=== PATIENT | female | born 1980 | race Caucasian/White ===

== ENCOUNTER → 2016-02-23 | Outpatient (REF) | payer OTHER | LOC: M SFHCLERA 17:46 | PROVIDERS: ATTEND Nurse Practitioner Family | DX: N93.9 Abnormal uterine and vaginal bleeding, unspecified (principal) ==

== ENCOUNTER → 2016-04-26 | Outpatient (CLI) | payer OTHER ==
--- NOTE | 2016-04-26 09:59 | REP ---
Transvaginal pelvic sonography: History: Ovarian dysfunction, follicle study. Findings: Uterine dimensions today are 7.3 x 2.8 x 4.5 cm. There are Nabothian cysts in the cervix. Previous uterine section scar is seen at the lower uterine segment. Endometrial echo is 0.6 cm thick. No free fluid visible in the cul-de-sac. The overall dimensions of the right ovary are 3.1 x 3.0 x 1.7 cm. There are two follicles greater than a centimeter in the right ovary measured as follows: 1.1 x 0.8 and 1.4 x 1.0 cm. In addition, the right ovary contains five follicles ranging in size from 0.5 to 0.8 cm. The left ovary measures 3.5 x 2.1 x 2.2 cm. There is a follicle in the left ovary measuring 1.8 x 1.5 cm. The left ovary contains five follicles ranging in size from 0.5 to 0.9 cm. Impression: Follicle study as above. Signed by Galileo Rich MD 04/26/2016 01:08 P
[2016-04-26 10:05] LABS: LUTEINIZING HORMONE 7.1 mIU/mL; PROGESTERONE 0.9 NG/ML
[2016-04-26 10:06] LABS: ESTRADIOL 77.4 PG/ML
== END ==
LOC: M LAB 07:49 → M RAD 07:49
PROVIDERS: ATTEND Obstetrics & Gynecology Reproductive Endocrinology
DX: N97.9 Female infertility, unspecified (principal)

== ENCOUNTER → 2016-04-29 | Outpatient (CLI) | payer OTHER ==
--- NOTE | 2016-04-29 08:20 | REP ---
Transvaginal pelvic sonography: History: Infertility. Findings: Uterine dimensions are 8.9 x 3.6 x 4.9 cm. Endometrial echo is 1.3 cm thick. There is some endocervical fluid noted today at the time of scanning. No focal uterine mass is seen. The overall dimensions of the right ovary are 2.8 x 1.9 x 2.1 cm. There are three follicles over a centimeter in the right ovary today measured as follows: 1.4 x 1.0, 1.0 x 1.0, 1.0 x 0.7 cm respectively. In addition, the right ovary contains eight follicles ranging in size from 0.2-0.8 cm. The overall dimensions of the left ovary today are 4.1 x 2.6 x 3.1 cm. There is a 2.4 x 1.4 cm follicle in the left ovary and there are five follicles in the left ovary ranging in size from 0.3-0.8 cm. Impression: Follicle study as above. No significant abnormality. Signed by Galileo Rich MD 04/29/2016 08:12 A
[2016-04-29 09:55] LABS: ESTRADIOL 350.1 PG/ML; LUTEINIZING HORMONE 7.9 mIU/mL; PROGESTERONE 0.9 NG/ML
== END ==
LOC: M RAD 07:25 → M LAB 07:25
PROVIDERS: ATTEND Obstetrics & Gynecology Reproductive Endocrinology
DX: E28.2 Polycystic ovarian syndrome (principal)

== ENCOUNTER → 2016-05-06 | Outpatient (CLI) | payer OTHER ==
[2016-05-06 08:47] LABS: ESTRADIOL 183.1 PG/ML; PROGESTERONE 19.5 NG/ML
== END ==
LOC: M LAB 07:43
PROVIDERS: ATTEND Obstetrics & Gynecology Reproductive Endocrinology
DX: Z31.49 Encounter for other procreative investigation and testing (principal)

== ENCOUNTER → 2016-05-16 | Outpatient (CLI) | payer OTHER ==
[2016-05-16 08:54] LABS: PROGESTERONE 1.5 NG/ML
[2016-05-16 11:50] LABS: HCG, SERUM QUANTITATIVE < 1.0 MIU/ML
== END ==
LOC: M LAB 07:18
PROVIDERS: ATTEND Obstetrics & Gynecology Reproductive Endocrinology
DX: Z32.00 Encounter for pregnancy test, result unknown (principal)

== ENCOUNTER → 2016-06-16 | Outpatient (CLI) | payer OTHER ==
[2016-06-16 08:21] LABS: MEAN CORPUSCULAR HEMOGLOBIN 31.2 pg (27.0-33.0); MEAN CORPUSCULAR HGB CONC 33.2 g/dl (32.0-36.5); RED CELL DISTRIBUTION WIDTH 12.6 % (11.5-14.5); WHITE BLOOD COUNT 5.8 K/mm3 (4.0-10.0)
[2016-06-16 08:31] LABS: ALBUMIN 4.1 GM/DL (3.2-5.2); ALBUMIN/GLOBULIN RATIO 1.21 (1.00-1.93); ALKALINE PHOSPHATASE 45 U/L (45-117); ALT/SGPT 13 U/L (12-78); ANION GAP 8 MEQ/L (8-16); AST/SGOT 7 U/L (15-37); BILIRUBIN,TOTAL 0.4 MG/DL (0.2-1.0); BLOOD UREA NITROGEN 19 MG/DL (7-18); CALCIUM LEVEL 8.9 MG/DL (8.5-10.1); CARBON DIOXIDE LEVEL 28 MEQ/L (21-32); CHLORIDE LEVEL 102 MEQ/L (98-107); GLOMERULAR FILTRATION RATE > 60.0 (>60); GLUCOSE, FASTING 82 MG/DL (70-105); HCG, SERUM QUANTITATIVE < 1.0 MIU/ML; POTASSIUM SERUM 4.5 MEQ/L (3.5-5.1); SODIUM LEVEL 138 MEQ/L (136-145); TOTAL PROTEIN 7.5 GM/DL (6.4-8.2)
== END ==
LOC: M LAB 07:40
PROVIDERS: ATTEND Obstetrics & Gynecology Reproductive Endocrinology
DX: N97.9 Female infertility, unspecified (principal)

== ENCOUNTER → 2016-09-23 | Outpatient (REF) | payer OTHER | LOC: M SFHCLERA 10:13 | PROVIDERS: ATTEND Nurse Practitioner Family | DX: N39.0 Urinary tract infection, site not specified (principal); L29.8 Other pruritus; R39.9 Unspecified symptoms and signs involving the genitourinary system ==